=== PATIENT | female | born 1950 | race Caucasian/White ===

== ENCOUNTER 2019-11-04 08:45 | Day surgery (SDC) | payer MEDICARE, BC ==
[2019-11-04] MEDS ORDERED: Sodium Chloride 0.9% 1,000 ML IV SCH (09:15)
[2019-11-04] MEDS ORDERED: Propofol 200 MG/20 ML SDV ONE (10:17)
[2019-11-04] MEDS ORDERED: fentaNYL 100 MCG/2 ML SDV ONE (10:17)
[2019-11-04] MEDS ORDERED: Midazolam 1 MG/ML 2 ML SDV ONE (10:17)
[2019-11-04 11:34] VITALS: PULSE 62
[2019-11-04 11:54] VITALS: BP 114/75
--- NOTE | 2019-11-04 16:13 | OR ---
DATE OF PROCEDURE: 11/04/2019 SURGEON: Moustapha Gerardo MD PROCEDURE: Colonoscopy. FINDINGS: Normal colonoscopy. COMPLICATIONS: None. RECREATION LEADER: None. PREOPERATIVE DIAGNOSIS: History of colon polyps. POSTOPERATIVE DIAGNOSIS: History of colon polyps. RISKS: Risks, benefits, alternatives, and limitations including, but not limited to, infection, bleeding, and perforation were explained to the patient who wished to proceed. PROCEDURE IN DETAIL: The patient was placed in left lateral decubitus position. Digital rectal exam was performed without abnormality. Scope was introduced and advanced atraumatically to the ileocecal valve. Scope was brought back to the ascending, transverse, descending colon, and retroflexed. No evidence of old or new blood. No masses. No polyps. No diverticulosis. No evidence of colitis. No abnormalities on retroflexion. The patient tolerated the procedure well. Moustapha Gerardo MD /[id number]
== END 2019-11-04 11:58 | disposition home or self-care (01) ==
LOC: JP.SDS 08:45
PROVIDERS: ATTEND Surgery
DX: Z12.11 Encounter for screening for malignant neoplasm of colon (principal); E03.9 Hypothyroidism, unspecified; Z86.010 Personal history of colon polyps; Z98.890 Other specified postprocedural states; Z88.0 Allergy status to penicillin; Z91.012 Allergy to eggs
CPT/HCPCS: G0105; J2250; J2704; J3010; J7030

== ENCOUNTER 2024-05-23 08:54 | Emergency (ER) | payer MEDICARE, BC ==
[2024-05-23] MEDS: HYDROmorphone 0.5 MG/0.5 ML Syringe IVPUSH ONE ×2 (09:23→14:57)
[2024-05-23 09:24] LABS: BASOPHILS PERCENT AUTO 0.1 % (0.1-1.3); EOSINOPHILS PERCENT AUTO 0.1 % (0.0-5.4); HEMATOCRIT 43.1 % (34.3-46.0); HEMOGLOBIN 14.9 g/dL (11.2-15.5); IMMATURE GRAN ABSOLUTE AUTO 0.04 K/uL (0.00-0.23); IMMATURE GRAN PERCENT AUTO 0.3 % (0.0-0.7); LYMPHOCYTES PERCENT AUTO 12.1 % (11.4-47.7); MEAN CORPUSCULAR HEMOGLOBIN 31.2 pg (31.6-35.5); MEAN CORPUSCULAR HGB CONC 34.6 g/dL (31.6-35.5); MEAN CORPUSCULAR VOLUME 90.2 fL (81.4-99.0); MONOCYTES ABSOLUTE AUTO 0.51 K/uL (0.20-0.90); MONOCYTES PERCENT AUTO 3.6 % (3.3-12.6); NEUTROPHILS PERCENT AUTO 83.8 % (40.0-78.1); PLATELET COUNT,PLT 264 K/uL (130-375); RED BLOOD CELL COUNT 4.78 M/uL (3.77-5.24); WHITE BLOOD CELL COUNT,WBC 14.1 K/uL (3.2-11.0)
[2024-05-23 09:26] LABS: BASOPHILS ABSOLUTE AUTO 0.02 K/uL (0.00-0.10); EOSINOPHILS ABSOLUTE AUTO 0.02 K/uL (0.00-0.40)
[2024-05-23] MEDS: Sodium Chloride 0.9% 1,000 ML IV SCH ×2 (09:30→14:56)
[2024-05-23 09:46] LABS: A/G RATIO 1.1 (1.2-2.2); ALANINE AMINOTRANSFERASE,ALT 33 U/L (12-78); ALKALINE PHOSPHATASE 79 U/L (46-116); ASPARTATE AMNIOTRANSFERASE,AST 25 U/L (15-37); BILIRUBIN TOTAL 0.5 mg/dL (0.2-1.0); BLOOD UREA NITROGEN,BUN 17 mg/dL (7-18); CALCIUM 9.1 mg/dL (8.5-10.1); CARBON DIOXIDE,CO2 20 mmol/L (21-32); CHLORIDE,CL 103 mmol/L (100-108); CREATININE 1.1 mg/dL (0.6-1.0); EST CRCL DRUG DOSING (CG) 34.95 mL/min; ESTIMATED GFR 52 mL/min (>60); GLUCOSE RANDOM 169 mg/dL (74-106); POTASSIUM,K 3.5 mmol/L (3.6-5.2); PROTEIN TOTAL,TP 7.5 g/dL (6.4-8.2); SODIUM,NA 139 mmol/L (140-148)
[2024-05-23 09:47] LABS: ANION GAP 19.5 mmol/L (5.0-14.0)
[2024-05-23 09:54] LABS: C-REACTIVE PROTEIN < 0.50 mg/dL (<0.50); TSH ULTRASENSITIVE 7.788 uIU/mL (0.358-3.740)
[2024-05-23] MEDS: Ketorolac 30 MG/ML SDV IVPUSH ONE (09:56)
[2024-05-23 10:28] LABS: APPEARANCE,URINE CLEAR (CLEAR); BILIRUBIN,URINE NEGATIVE (NEGATIVE); COLOR,URINE YELLOW (YELLOW); GLUCOSE,URINE 100 mg/dL (NEGATIVE); KETONES,URINE 40 mg/dL (NEGATIVE); LEUKOCYTE ESTERASE,URINE NEGATIVE (NEGATIVE); NITRITE,URINE NEGATIVE (NEGATIVE); OCCULT BLOOD,URINE NEGATIVE (NEGATIVE); PH,URINE 6.5 (5.0-8.0); PROTEIN,URINE NEGATIVE (NEGATIVE); UROBILINOGEN,URINE 0.2 EU/dL (0.2-1.0)
[2024-05-23 10:33] LABS: RBC,URINE NOT SEEN (0-5); WBC,URINE NOT SEEN (0-5)
[2024-05-23 10:34] LABS: AMORPHOUS SEDIMENT,URINE RARE; BACTERIA,URINE RARE; EPITHELIAL CELLS,URINE RARE; MUCUS,URINE NOT SEEN
[2024-05-23] MEDS ORDERED: Iopamidol 612 MG/ML 100 ML Bottle IV SCH (13:30)
[2024-05-23] MEDS: Sodium Chloride 0.9% 80 ML IV SCH (13:41)
[2024-05-23] MEDS: Iopamidol 612 MG/ML 100 ML Bottle IV SCH (13:41)
[2024-05-23] MEDS: Sodium Chloride 0.9% 10 ML Syringe FLUSH ONE ×2 (13:42→14:57)
[2024-05-23] MEDS ORDERED: Sodium Chloride 0.9% 100 ML IV SCH (13:45)
[2024-05-23] MEDS: Ondansetron 4 MG/2 ML SDV IVPUSH ONE (14:57)
[2024-05-23 16:02] VITALS: BP 155/87; PULSE 103
[2024-05-23] MEDS ORDERED: Tamsulosin 0.4 MG Cap.ER PO ONE (16:20)
== END 2024-05-23 16:46 | disposition home or self-care (01) ==
LOC: JP.ED 08:54
DX: N20.1 Calculus of ureter (principal); N28.89 Other specified disorders of kidney and ureter; E03.9 Hypothyroidism, unspecified; Z88.0 Allergy status to penicillin; Z88.8 Allergy status to other drugs, medicaments and biological substances; Z79.890 Hormone replacement therapy
CPT/HCPCS: 36415; 74176; 74177; 80053; 81001; 83735; 84443; 85025; 86140; 93005; 96361; 96374; 96375; 96376; 99284; J1885; J7030; Q9967; J2405

== ENCOUNTER 2024-05-24 09:59 | Emergency (ER) | payer MEDICARE, BC ==
[2024-05-24 10:11] VITALS: BP 104/49; PULSE 87
[2024-05-24 10:47] LABS: APPEARANCE,URINE CLEAR (CLEAR); BILIRUBIN,URINE NEGATIVE (NEGATIVE); COLOR,URINE YELLOW (YELLOW); GLUCOSE,URINE NEGATIVE (NEGATIVE); KETONES,URINE NEGATIVE (NEGATIVE); LEUKOCYTE ESTERASE,URINE TRACE (NEGATIVE); NITRITE,URINE NEGATIVE (NEGATIVE); OCCULT BLOOD,URINE MODERATE (NEGATIVE); PH,URINE 5.5 (5.0-8.0); PROTEIN,URINE 30 mg/dL (NEGATIVE); UROBILINOGEN,URINE 0.2 EU/dL (0.2-1.0)
[2024-05-24 10:59] LABS: AMORPHOUS SEDIMENT,URINE FEW; BACTERIA,URINE FEW; EPITHELIAL CELLS,URINE FEW; MUCUS,URINE FEW; WBC,URINE 20-30 (0-5)
== END 2024-05-24 12:00 | disposition home or self-care (01) ==
LOC: JP.ED 09:59
DX: N39.0 Urinary tract infection, site not specified (principal); E03.9 Hypothyroidism, unspecified; Z79.899 Other long term (current) drug therapy; Z88.0 Allergy status to penicillin; Z88.1 Allergy status to other antibiotic agents
CPT/HCPCS: 81001; 87086; 87088; 87186; 99283